=== PATIENT | male | born 1955 | race Caucasian/White ===

== ENCOUNTER 2022-10-09 16:31 | Observation (INO) ==
[2022-10-09 17:11] LABS: Hematocrit 35.5 % (38-53); Hemoglobin 12.5 g/dL (13.2-16.3); Mean Corpuscular Hemoglobin 29.5 pg (27-33); Mean Corpuscular Hgb Conc 35.2 g/dL (31-36); Mean Corpuscular Volume 83.6 fL (80-97); Red Blood Count 4.25 10^6/uL (4.06-5.63); Red Cell Distribution Width 14.2 % (12-17); White Blood Count 3.1 10^3/uL (3.6-10.2)
[2022-10-09 17:15] LABS: INR 1.39 (0.88-1.18)
[2022-10-09 17:55] LABS: RBC Morphology Normal (Normal)
[2022-10-09 17:56] LABS: ABS Lymphocytes 0.4 10^3/uL (1.0-4.8); ABS Monocytes 0.5 10^3/uL (0.0-1.1); ABS Neutrophils 2.3 10^3/uL (1.5-7.6); ABS Nucleated RBC 0.01 10^3/ul; Eosinophil % 0.2 %; Lymphocyte % 11.6 %; Mean Platelet Volume 8.4 fL (7.5-11.2); Nucleated Red Blood Cells % 0.3 /100 WBC (0.0-0.4); Platelet Count 51 10^3/uL (150-450)
[2022-10-09 18:02] LABS: Albumin 3.7 g/dL (3.2-5.2); Albumin/Globulin Ratio 1.2 (1-3); Calcium 8.5 mg/dL (8.6-10.3); Creatinine, Serum 0.71 mg/dL (0.67-1.17); Potassium 3.6 mmol/L (3.5-5.0); Total Bilirubin 1.1 mg/dL (0.2-1.0); Total Protein 6.7 g/dL (6.4-8.9); eGFR CKD-EPI 101.8 (>60)
[2022-10-09 19:54] LABS: C Reactive Protein 102.57 mg/L (<8.01)
[2022-10-09] MEDS ORDERED: Dextrose 50% Syringe 50 ml 25 GM/50 ML SYRINGE IV PUSH PRN (23:42)
[2022-10-10] MEDS ORDERED: Polyethylene Glycol 3350 17 GM PACKET PO PRN
[2022-10-10] MEDS ORDERED: Ondansetron 4 mg VIAL 2 MG/ML 2 ml VIAL IV PRN
[2022-10-10 02:05] LABS: RBC Parasite Smear No Parasites Seen (No Parasite)
[2022-10-10] MEDS ORDERED: DOXYcycline 100 MG in NS 0.9% 250 ml 250 ML IVPB SCH (09:00)
[2022-10-10 10:29] LABS: Direct Bilirubin 0.2 mg/dL (0.03-0.18); Indirect Bilirubin 0.9 mg/dL (0.3-1.0)
[2022-10-10] MEDS ORDERED: Metoprolol Tartrate 5 mg VIAL 5 ml VIAL (1 mg/ml) IV ONE (10:54)
[2022-10-10] MEDS ORDERED: Lactated Ringers 1000 ml BAG 1,000 ML IV ONE (12:33)
[2022-10-10] MEDS ORDERED: Metoprolol Tartrate 5 mg VIAL 5 ml VIAL (1 mg/ml) IV PRN (13:27)
[2022-10-10 18:13] LABS: Calcium 9.1 mg/dL (8.6-10.3); Creatinine, Serum 0.67 mg/dL (0.67-1.17); Potassium 3.5 mmol/L (3.5-5.0); eGFR CKD-EPI 103.6 (>60)
[2022-10-10 19:43] LABS: Hematocrit 35.7 % (38-53); Hemoglobin 12.6 g/dL (13.2-16.3); Mean Corpuscular Hemoglobin 29.4 pg (27-33); Mean Corpuscular Hgb Conc 35.3 g/dL (31-36); Mean Corpuscular Volume 83.4 fL (80-97); Mean Platelet Volume 8.6 fL (7.5-11.2); Platelet Count 61 10^3/uL (150-450); RBC Morphology Normal (Normal); Red Blood Count 4.28 10^6/uL (4.06-5.63); Red Cell Distribution Width 14.3 % (12-17); White Blood Count 2.9 10^3/uL (3.6-10.2)
[2022-10-10 19:44] LABS: ABS Lymphocytes 0.8 10^3/uL (1.0-4.8); ABS Monocytes 0.7 10^3/uL (0.0-1.1); ABS Neutrophils 1.3 10^3/uL (1.5-7.6); Eosinophil % 1.4 %; Lymphocyte % 27.6 %; Nucleated Red Blood Cells % 0.2 /100 WBC (0.0-0.4)
[2022-10-10] MEDS: DOXYcycline 100 MG in NS 0.9% 250 ml 250 ML IVPB SCH (21:37)
[2022-10-11] MEDS ORDERED: Metoprolol Tartrate 5 mg VIAL 5 ml VIAL (1 mg/ml) IV ONE (06:09)
[2022-10-11 06:31] LABS: Hematocrit 35.9 % (38-53); Hemoglobin 12.6 g/dL (13.2-16.3); Mean Corpuscular Hemoglobin 29.1 pg (27-33); Mean Corpuscular Hgb Conc 35.1 g/dL (31-36); Mean Platelet Volume 8.6 fL (7.5-11.2); Platelet Count 70 10^3/uL (150-450); Red Blood Count 4.33 10^6/uL (4.06-5.63); Red Cell Distribution Width 14.1 % (12-17); White Blood Count 3.4 10^3/uL (3.6-10.2)
[2022-10-11 06:45] LABS: Calcium 9.2 mg/dL (8.6-10.3); Creatinine, Serum 0.69 mg/dL (0.67-1.17); Magnesium 1.5 mg/dL (1.9-2.7); Potassium 3.7 mmol/L (3.5-5.0); eGFR CKD-EPI 102.7 (>60)
[2022-10-11 07:37] LABS: RBC Morphology Normal (Normal)
[2022-10-11] MEDS ORDERED: Magnesium Sulf 4 GM/100 ML IV 4,000 MG/100 ML BAG IVPB ONE (07:56)
[2022-10-11] MEDS ORDERED: Potassium Chlor 20 meq TAB.ER PO ONE (07:56)
[2022-10-11 08:28] LABS: ABS Eosinophils 0.1 10^3/ul (0.0-0.5); ABS Lymphocytes 1.1 10^3/ul (1.0-4.8); ABS Monocytes 0.4 10^3/ul (0.0-1.1); ABS Neutrophils 1.7 10^3/ul (1.5-7.6)
[2022-10-11] MEDS: DOXYcycline 100 MG in NS 0.9% 250 ml 250 ML IVPB SCH (09:07)
[2022-10-11 11:37] LABS: High Sensitivity Troponin 1 Hr 6 pg/mL (<20)
[2022-10-11 16:38] VITALS: BP 132/69
[2022-10-13 10:14] LABS: Anaplasma phagocytophilum Positive (Negative); B. miyamotoi PCR, B Negative (Negative); Babesia divergens/MO-1 Negative (Negative); Babesia ducani Negative (Negative); Ehrlichia chaffeensis Negative (Negative); Ehrlichia ewingii/canis Negative (Negative); Ehrlichia muris eauclairensis Negative (Negative)
== END 2022-10-11 16:26 | disposition home or self-care (01) ==
LOC: EDHOLD 16:31 → ED 16:31 → SUATTDRO 10-10 00:35 → MEDTELE 10-10 14:29
PROVIDERS: ADMIT Internal Medicine; ATTEND Internal Medicine